=== PATIENT | female | born 1950 | race Caucasian/White ===

== ENCOUNTER 2016-11-06 20:51 | Observation (INO) ==
[2016-11-06] MEDS ORDERED: FAMOTIDINE 20 MG/2 ML VIAL IV STA (21:28)
[2016-11-06] MEDS ORDERED: diphenhydrAMINE 50 MG/1 ML VIAL IV STA (21:28)
[2016-11-06] MEDS ORDERED: methylPREDNISolone SOD SUC 125 MG/2 ML VIAL IV STA (21:28)
[2016-11-06] MEDS ORDERED: SODIUM CHLORIDE 0.9% 500 ML IV STA (21:28)
--- NOTE | 2016-11-06 21:51 | Emergency Department Note ---
IChaz Emily, am scribing for, and in the presence of, Dominic Alcaraz MD 21: 49. ILissa Charles R, MD, personally performed the services described in this documentation, ascribed by Renetta Ware in my presence, and it is both accurate and complete . Arrival - Arrival Chief Complaint: Allergic Reaction Stated Complaint: hives ED Nursing Triage Note: Patient to triage with c/o hives all over body that started around 193 that patient states is "stinging" unknown cause. denies trouble swallowing, SOB. lungs clear in all espinosa in triage. Patient states the only thing she can think of that it could be is a choudhury cough drop she took. Patient also just finished a round of ABX, sulfa. Mode of Arrival: Ambulatory Limitations: No Limitations Source: Patient Time Seen by Provider: 11/06/16 21:20 - History of Present Illness HPI Narrative: Pt is a 66 y/o female who came to ED with c/o diffuse rash over body that started this afternoon. Pt notes at dinner time her son pointed out the severity, then reports the rash spread profusely. Pt reports having burning and sensitivity to upper back beginning of the afternoon but ignored it. She states now the rash has become intense with burning, especially around eyes. Pt denies recent tick bites. She states taking a sulfa based abx recently finished for an ingrown toenail that was removed. As well as, eating choudhury cough drops today due to having the chills and was thinking she was getting a cold. Pt does have low grade fever in ED of 99.8. Onset (ago): hour(s) Consistency: constant Severity: moderate Severity scale (1-10): 5 Quality: other (spreading) Date of Last Menstrual Period: menopause Allergies/Adverse Reactions: Allergies Allergy/AdvReac Type Severity Reaction Status Date / Time No Known Allergies Allergy Unverified 11/06/16 21:07 Review of System - Review of System 12 point system: reviewed and no additional remarkable complaints except as stated - Review of System Constitutional: Absent: chills, fever Head/Ears/Nose/Throat: Present: sore throat. Absent: earache Respiratory: Absent: respiratory distress, wheezing Cardiovascular: Absent: chest pain Gastrointestinal: Absent: abdominal pain Skin: Present: rash (diffusely) Neurological: Absent: headache Allergic/Immunologic: Absent: itchy eyes (burning near eyes) Medical,Surgical,& Family Hx - Medical History Endocrine: History of: Thyroid Disorder - Surgical History HEENT Surgeries: Surgical HX of: Thyroid Surgery - Family History Family History: noncontributory - Social History Smoking Status: Never smoker Frequency of Alcohol Use: None Type of Drug Use: None Marital Status: Lives With:: Spouse Functional capacity: independent ambulation Exam Vital Signs: Vital Signs Temperature 99.8 F H 11/06/16 21:01 Pulse Rate 103 H 11/06/16 21:01 Respiratory Rate 20 11/06/16 21:01 Blood Pressure 153/66 11/06/16 21:01 O2 Sat by Pulse Oximetry 98 11/06/16 21:01 - General General appearance: alert, in no apparent distress - Head Head exam: Present: atraumatic, normocephalic - Eye Eye exam: Present: PERRL, EOMI - ENT ENT exam: Present: mucous membranes moist. Absent: normal oropharynx ( erythematous; not enlarged tonsils; strawberry tongue), mucous membranes dry - Neck Neck exam: Present: full ROM, trachea midline. Absent: tenderness, meningismus - Chest Chest inspection: Present: symmetric chest wall rise. Absent: tenderness - Respiratory Respiratory exam: Present: normal lung sounds bilaterally. Absent: accessory muscle use, respiratory distress, stridor, wheezes - Cardiovascular Cardiovascular exam: Present: tachycardia, normal heart sounds - Extremities Exam Extremities exam: Present: full ROM. Absent: pedal edema - Neurological Exam Neurological exam: Present: alert, oriented X3, CN II-XII intact. Absent: motor sensory deficit - Psychiatric Psychiatric exam: Present: normal affect, normal mood - Skin Skin exam: Present: warm (febrile), dry, rash (rash diffusely over body, on palms of bilateral hands but not plantar surfaces; upper back rash is rasied and severely sensitive to touch consistent with macular and papular rash; petechial rash on bilateral lower extremites) Course - Consultations Consultation #1: Hospitalists will admit patient Time: 23:42 Results - Labs CBC & BMP: 11/06/16 21:42 11/06/16 21:42 Lab Results: I have reviewed the patients labs Labs: Microbiology 11/06/16 22:15 Throat Group A Streptococcus Rapid Screen - Final Negative for Grp A Strep Ag 11/06/16 22:15 Nasal Aspirate Influenza Types A,B Antigen (PABLO) - Final Negative for Influenza A Ag Negative for Influenza B Ag Laboratory Tests 11/06/16 11/06/16 11/06/16 21:42 21:42 21:42 WBC 8.8 RBC 4.64 Hgb 13.7 Hct 40.6 Plt Count 205 Neut % (Auto) 82.4 H Lymph % (Auto) 13.1 L Lymph # (Auto) 1.2 L INR 1.0 PT Patient/Control Mix 10.7 Sodium 139 Potassium 3.7 Chloride 105 Carbon Dioxide 27 BUN 20 H Creatinine 1.10 H GFR Calculation 56 Glucose 132 H Calcium 8.4 L AST 22 C-Reactive Protein 5.30 H Critical Care Time Critical Care Time: Yes Total Critical Care Time: 60 Disposition Clinical Impression: Rash of body, Petechial rash, RMSF ([place] spotted fever), Fever, Malaise and fatigue Case discussed with: patient, patient's family Disposition: Still a Patient Condition: Guarded Time of Disposition: 23:42
[2016-11-06 22:19] LABS: Basophils % 0.1 % (0.0-0.8); Eosinophils # 0.1 10*3/uL (0.0-0.87); Eosinophils % 1.5 % (0.00-10.9); Hematocrit 40.6 VOL% (35.7-47.0); Hemoglobin 13.7 GM/DL (12.0-16.0); Immature Granulocytes % 0.3 %; Immature Granulocytes Absolute 0.03 #; Lymphocytes # 1.2 10*3/uL (1.4-4.0); Lymphocytes % 13.1 % (21.3-54.2); Mean Corpuscular HGB Conc 33.7 GM/DL (32-36); Mean Corpuscular Hemoglobin 30 PG (27-34); Mean Corpuscular Volume 87.5 FL (87-102); Mean Platelet Volume 10.3 FL (9.6-12.0); Monocytes # 0.2 10*3/uL (0.11-0.8); Monocytes % 2.6 % (1.7-12.7); Neutrophils # 7.2 10*3/uL (1.4-7.4); Neutrophils % 82.4 % (38.7-73.9); Platelet Count 205 T/CUMM (130-400); Red Blood Count 4.64 MC/CUMM (3.8-5.5); Red Cell Distribution Width 13.8 % (9.3-17.3); White Blood Count 8.8 T/CUMM (4-12)
[2016-11-06] MEDS ORDERED: diphenhydrAMINE 50 MG/1 ML VIAL ONE (22:21)
[2016-11-06] MEDS ORDERED: methylPREDNISolone SOD SUC 125 MG/2 ML VIAL ONE (22:21)
[2016-11-06] MEDS ORDERED: FAMOTIDINE 20 MG/2 ML VIAL IV ONE (22:22)
[2016-11-06 22:29] LABS: PT Patient Result 10.7 SECS
[2016-11-06 22:38] LABS: Albumin 3.5 G/DL (3.4-5.0); Bilirubin,Total 0.9 MG/DL (0.2-1.0); Calcium 8.4 MG/DL (8.5-10.1); Lactic Acid 1.5 MMOL/L (0.4-2.0); Osmolality,Calculated 281.5 MOS/KG (273-304); Potassium 3.7 MMOL/L (3.5-5.1); Total Protein 6.6 G/DL (6.4-8.3)
[2016-11-06] MEDS ORDERED: DOXYCYCLINE HYCLATE INJ 100 MG in SODIUM CHLORIDE 0.9% 100 ML IV STA (23:40)
[2016-11-06 23:58] LABS: Sedimentation Rate-Westergren 55 MM/HR (0-30)
[2016-11-07] MEDS ORDERED: DOXYCYCLINE HYCLATE 100 MG VIAL ONE (00:46)
[2016-11-07] MEDS ORDERED: SODIUM CHLORIDE 0.9% 100 ML IV ONE (00:46)
[2016-11-07 01:11] LABS: Apearance,Urine CLEAR (Clear); Bilirubin,Urine Negative (Negative); Blood, Urine Negative (Negative); Glucose,Urine (UA) Negative (Negative); Ketones,Urine Negative (Negative); Mucus,Urine Occasional /LPF (Occasional); Nitrite,Urine Negative (Negative); Protein,Urine Negative; Squamous Epithelial Cell,Urine Occasional /HPF (0-10); Urine Color Yellow (Yellow); Urine Specific Gravity 1.008 (1.001-1.035); Urine Urobilinogen < 2.0 EU/DL (0.2-1.0)
[2016-11-07] MEDS ORDERED: ONDANSETRON 4 MG/2 ML VIAL IV PRN (01:43)
[2016-11-07] MEDS ORDERED: ACETAMINOPHEN 325 MG TABLET PO PRN (01:43)
--- NOTE | 2016-11-07 02:23 | Hospitalist History & Physical ---
Assessment and Plan (1) Petechial rash Status: Acute Current Visit: Yes (2) Malaise and fatigue Status: Acute Current Visit: Yes (3) HTN (hypertension) Status: Acute Current Visit: Yes (4) Hypothyroidism associated with surgical procedure Status: Acute Assessment and plan: Plan: 1. Will place on Cardiac monitored bed. ID work up including ruling out for [place] Spotted Fever, symptoms consistent with this diagnosis however the patient denies any association with TICS, only Fleas. No leukocytosis, low fever. Consult ID. Will administer Doxcycline q 12, continue IV hydration, Benadryl as needed, Pepcid, resume home dose Zyrtec and Singular. Eosinophils are not elevated. Unsure if the patient has had an allergic reaction. Steroids 125mg were given in the ED which should cover her for the next 24 hours since she is such a small female. Consider adding smaller dose if no improvement tomorrow. 2. REpeat labs in the morning, continue gently hydration, prn pain medication and prn IV antihypertensives if the patient remains hypertensive. 3. Resume home dose synthroid, assess labs in am. Lipid panel in am. Resume statin once medication is verified. 4. We will utilize Pepcid IV bid instead of Protonix to provide better H2 isiah with possible reaction and Lovenox for DVT px. Fifty five minutes was spent on this H&P not including procedures. Current Visit: Yes History of Present Illness Chief complaint: New onset rash History of present illness: CC: Rash and Hives HPI: Ms. Em is a 66 year old female with past medical history significant for elevated cholesterol, surgically induced Hypothyroidism and seasonal allergies that presented to the the ED today with rapid onset of Rash and hives covering her whole body that started approximately at 19:30.She lives in [place] and is here visiting her Son. She states she has been feeling tired and ran down with seasonal allergies and scratchy throat since last Friday requiring naps daily. Associated symptoms included, malaise, scratchy throat chills, rash, hives, stinging around eyes, and a rash and hives over her entire body that is worse on her chest back and neck. Symptoms have been consistent despite IV steroids and IV Benadryl. She denies, dizziness, SOB, difficulty swallowing, chest pain, palpitations, nausea, vomiting, melena, tic bites, She states she has been on two rounds of antibiotics for an infected toenail, Keflex the first round and then Bactrim. She states the only thing she has taken that is unusual is a choudhury cough drop for a scratchy throat. She also states 4 weeks ago she had her home sprayed for fleas and had several flea bites on her lower extremities. Chest xray with no obvious infiltrates. Labs revealed no significant leukocytosis, no elevation in eospinophils, CRP elevated to 5.6, Creatinine 1.1 , Influenza negative as well as strep, Multiple labs pending for ID work up. She will be admitted to the Hospitalist service for medical management and IV antibiotic therapy with ID consulted. O Allergies Allergy/AdvReac Type Severity Reaction Status Date / Time No Known Allergies Allergy Unverified 11/06/16 21:07 Medical,Surgical,& Family Hx - Medical History Cardio: No history of: CAD Psychological: No history of: Anxiety Disorders, Psychiatric Problems Neurology: No history of: Cerebrovascular Accident, Neurological Problems HEENT: No history of: Ear Problem, Eye Problem, Dental Problems Endocrine: History of: Dyslipidemia, Thyroid Disorder Gastrointestinal: No history of: GERD, Liver Problems, Gastrointestinal Cancer Musculoskeletal: History of: Back/Neck Problems, Degenerative Disk Disease, Musculoskeletal Problems (Arthritis in right foot. Right ingrown toenail infection. ) Hematology: No history of: Anemia, Blood Disorders Other: No history of: Anaphylaxis - Surgical History Surgical History: noncontributory HEENT Surgeries: Surgical HX of: Thyroid Surgery Additional Surgical History: surgery on right in grown toenail recently in September. - Family History Family History: Reports;: Family Cancer, Family Heart Disease, Family Hypertension - Social History Smoking Status: Never smoker Have you smoked in the last 12 months: No Frequency of Alcohol Use: None Type of Drug Use: None Functional capacity: independent ambulation - Constitutional Constitutional: Present: malaise - EENT Nose, mouth and throat: Present: nasal congestion, sore throat. Absent: throat swelling, tongue swelling, vertigo - Cardiovascular Cardiovascular: Absent: chest pain at rest, chest pain with activity, dyspnea, edema, palpitations - Respiratory Respiratory: Absent: cough, dyspnea - Gastrointestinal Gastrointestinal: Absent: abdominal pain, constipation, dysphagia, nausea - Genitourinary Genitourinary: Absent: dysuria, hematuria - Musculoskeletal Musculoskeletal: Present: myalgias - Neurological Neurological: Absent: abnormal gait, convulsions, disequilibrium, dizziness, syncope Exam - Constitutional Vitals: Period Temp Pulse Resp BP Sys/Anthony Pulse Ox Last 24 Hr 99.8 F-99.8 F 103-103 20-20 153-153/66-66 98 General appearance: normal weight - Head Head exam: Present: normocephalic, atraumatic, other (Diffuse rash of entire body including face, head and neck.) - Eye Eye exam: Present: EOMI Pupils: Present: VERO - ENT ENT exam: Present: normal exam, normal oropharynx, other (normal except for rash ) - Neck Neck exam: Present: other (scar from thyroid surgery, rash present) - Respiratory Respiratory exam: Present: clear to auscultation bilaterally. Absent: accessory muscle use, decreased breath sounds, rales, wheezes - Cardiovascular Cardiovascular exam: Present: tachycardia, other (regular rhythm, tachycardia) - GI/Abdominal GI/Abdominal exam: Present: normal bowel sounds, other (rash present) - Extremities Exam Extremities exam: Present: normal capillary refill, full ROM, other (Left foot Big toe toe nail with recent surgery dried drainage present with bandaid covering toe.+rash ) - Back Exam Back exam: Present: other (rash present). Absent: CVA tenderness (L), CVA tenderness (R) - Neurological Exam Neurological exam: Present: oriented X3, CN II-XII intact, reflexes normal - Skin Skin exam: Present: dry, erythema, rash, other (hives) Results - Labs CBC & BMP: 11/06/16 21:42 11/06/16 21:42 - Diagnostic Findings Procedure: Chest x-ray: report reviewed by me
[2016-11-07] MEDS: diphenhydrAMINE CAP 25 MG CAPSULE PO PRN ×3 (03:37→21:15)
[2016-11-07] MEDS: SODIUM CHLORIDE 0.9% 1,000 ML IV SCH ×2 (03:37→11:16)
[2016-11-07 06:17] LABS: Basophils % 0.2 % (0.0-0.8); Hematocrit 39.9 VOL% (35.7-47.0); Hemoglobin 13.4 GM/DL (12.0-16.0); Immature Granulocytes % 0.4 %; Immature Granulocytes Absolute 0.04 #; Lymphocytes # 0.6 10*3/uL (1.4-4.0); Lymphocytes % 6.1 % (21.3-54.2); Mean Corpuscular HGB Conc 33.6 GM/DL (32-36); Mean Corpuscular Hemoglobin 30 PG (27-34); Mean Corpuscular Volume 87.7 FL (87-102); Mean Platelet Volume 10.7 FL (9.6-12.0); Monocytes # 0.1 10*3/uL (0.11-0.8); Monocytes % 0.8 % (1.7-12.7); Neutrophils # 8.3 10*3/uL (1.4-7.4); Neutrophils % 92.5 % (38.7-73.9); Platelet Count 216 T/CUMM (130-400); Red Blood Count 4.55 MC/CUMM (3.8-5.5); Red Cell Distribution Width 13.8 % (9.3-17.3)
[2016-11-07 06:42] LABS: Band Neutrophils 5 % (0-10); Lymphocytes 4 % (20-55); Segmented Neutrophils 90 % (50-85); Total Cells Counted 100
[2016-11-07 06:43] LABS: Hypochromasia 1+; Microcytosis 1+
--- NOTE | 2016-11-07 06:51 | XRay Report ---
XR chest 1V portable Indication: Shortness of breath, fever Comparison: None available Findings: The heart and mediastinum are normal in size and configuration. The pulmonary vascularity is normal in caliber. No lung infiltrates, effusions, pneumothorax or other abnormality is demonstrated. Impression: Normal chest x-ray PROCEDURE INTERPRETED AT [facility] DEPARTMENT OF RADIOLOGY Final Report Signed by: Dr. Demetrio Candelaria
[2016-11-07 07:14] LABS: Calcium 8.1 MG/DL (8.5-10.1); Magnesium 2.1 MG/DL (1.8-2.4); Osmolality,Calculated 280.5 MOS/KG (273-304); Risk Ratio 1.71; Thyroid Stimulating Hormone 0.252 uIU/ml (0.358-3.74); VLDL CHOLESTEROL 8.6 MG/DL
[2016-11-07] MEDS: LEVOTHYROXINE 75 MCG TABLET PO SCH (07:21)
[2016-11-07] MEDS: MONTELUKAST 10 MG TABLET PO SCH (08:47)
[2016-11-07] MEDS: ENOXAPARIN 40 MG/0.4 ML SYRINGE SUBCUT SCH (08:47)
[2016-11-07] MEDS: FAMOTIDINE 20 MG TABLET PO SCH ×2 (08:47→21:14)
[2016-11-07] MEDS ORDERED: CETIRIZINE 10 MG TABLET PO PRN (09:00)
[2016-11-07] MEDS ORDERED: DOXYCYCLINE HYCLATE INJ 100 MG in SODIUM CHLORIDE 0.9% 100 ML IV SCH (12:00)
[2016-11-07] MEDS ORDERED: ZALEPLON 5 MG CAPSULE PO PRN (14:46)
--- NOTE | 2016-11-07 16:46 | Infectious Disease Consult ---
Assessment and Plan (1) Fever Status: Acute Assessment and plan: No fever since admission but she probably had fever at home yesterday. See below. Current Visit: Yes (2) HTN (hypertension) Status: Acute Current Visit: Yes (3) Rash of body Status: Acute Assessment and plan: My first impression is that this rash is a drug reaction, specifically to Bactrim. Her malaise started last week soon after she started taking the Bactrim and got progressively worse culminating with a rash over the past 1-2 days. Differential diagnosis includes viral infections such as West Nile, and also rickettsial infections. She has not recently found a tick on her body but [place] Recommendations: 1. Agree with empiric doxycycline 2. Supportive care for the rash. Patient advised that she is probably allergic to sulfa and should avoid those in the future 3. Send off West Nile virus serologies Thank you very much for the consult. Will follow. Current Visit: Yes History of Present Illness Chief complaint: Rash History of present illness: Ms. Em is a 66 year old female who is relatively well until a week ago when she started having malaise with increased tiredness and mild soreness of her body. Over the past few days she got chills and thinks she had a fever yesterday. She was carrying out her usual activities and after dinner yesterday her grand child noticed that her skin was red. When she looked she had a rash all over her body. For that reason she came to the emergency room and was admitted. She has not had any fever since admission. Of note the patient says that almost a month ago she noticed a dark spot to the tip of her left toe. She ended up going to see her mortgage loan underwriter and was told she had an ingrown toenail. He surgically excised the 2 sides of her toenail and gave her 10 week supply of cephalexin. After she took this the toe was still a bit red and so he gave her a 7 day supply of Bactrim double strength 1 tablet daily starting on 29 October. Patient took the last dose of Bactrim on the evening of the . It was the following day that she noticed the rash. Today the patient is possibly slightly better but she is is very tired because she has not slept. Says she feels a bit hyper [she got steroids]. The rash is tingly but not pruritic. She is not previously known to have any allergies. Home Medications Medication Instructions Recorded Confirmed Type Aspirin [Ecotrin] 81 mg PO DAILY 11/07/16 11/07/16 History Cetirizine Tab [ZyrTEC Tab] 10 mg PO DAILY 11/07/16 11/07/16 History Levothyroxine Tab [Synthroid Tab] 75 mcg PO DAILY@0700 11/07/16 11/07/16 History Lovastatin [Mevacor] 40 mg PO DAILY 11/07/16 11/07/16 History Montelukast Tab [Singulair Tab] 10 mg PO DAILY 11/07/16 11/07/16 History Multivitamin [Multivitamins] 1 tablet PO DAILY 11/07/16 11/07/16 History Allergies Allergy/AdvReac Type Severity Reaction Status Date / Time No Known Allergies Allergy Unverified 11/06/16 21:07 12 point system: reviewed and no additional remarkable complaints except as stated (Per HPI) Medical,Surgical,& Family Hx - Medical History Cardio: No history of: CAD Psychological: No history of: Anxiety Disorders, Psychiatric Problems Neurology: No history of: Cerebrovascular Accident, Neurological Problems HEENT: No history of: Ear Problem, Eye Problem, Dental Problems Endocrine: History of: Dyslipidemia, Thyroid Disorder Gastrointestinal: No history of: GERD, Liver Problems, Gastrointestinal Cancer Musculoskeletal: History of: Back/Neck Problems, Degenerative Disk Disease, Musculoskeletal Problems (Arthritis in right foot. Right ingrown toenail infection. ) Hematology: No history of: Anemia, Blood Disorders Other: No history of: Anaphylaxis - Surgical History HEENT Surgeries: Surgical HX of: Thyroid Surgery - Family History Family History: Reports;: Family Cancer, Family Heart Disease, Family Hypertension - Social History Smoking Status: Never smoker Frequency of Alcohol Use: None Type of Drug Use: None Infectious Disease Exam H&P - Constitutional Vitals: Vital Signs Temp Pulse Resp BP Pulse Ox 98.1 F 105 H 19 125/52 92 L 11/07/16 15:48 11/07/16 15:48 11/07/16 15:48 11/07/16 15:48 11/07/16 15:48 Intake and Output 11/07/16 11/07/16 11/07/16 07:59 15:59 23:59 Intake Total 220 / 220 1600 / 1600 Output Total 300 / 300 850 / 850 Balance -80 / -80 750 / 750 Intake: IV 100 / 100 1000 / 1000 Vibramycin Inj 100 mg In 100 / 100 Ns 100 ml @ 100 mls/hr IV 1X ED STA Rx#:[id number] Ns 1,000 ml @ 125 mls/hr 1000 / 1000 IV .Q8H HUAN Rx#: [id number] Oral 120 / 120 600 / 600 Output: Urine 300 / 300 850 / 850 Stool 0 / 0 Other: Voiding Method Toilet Toilet Weight 80.876 kg Patient Weight 11/07/16 23:59 Weight 80.876 kg Exam: General: Patient looks a bit tired but she was completely nontoxic appearing HEENT: Mucous membranes pink and moist, anicteric acyanotic, VERO, no oral exudates Neck: Supple, no thyroid gland enlargement, no lymphadenopathy Respiratory system: Breath sounds vesicular, no crepitations or wheezes Cardiovascular: Normal S1 and S2, no murmurs appreciated Abdomen: Normal bowel sounds, soft nontender throughout, no organomegaly or mass Genitourinary: No suprapubic pain or bladder distention Extremities: no edema, left toe noted with some irritation on both sides of the toenail, mild discoloration of the toe but no osmel drainage or significant swelling Skin: Diffuse confluent erythematous slightly raised macular rash from head to toe, even scalp involved. Few erythematous spots on palms. Reports - Labs CBC & BMP: 11/07/16 05:23 11/07/16 05:23 Labs: Laboratory Results - last 24 hr 11/06/16 11/06/16 11/06/16 21:42 21:42 21:42 WBC 8.8 RBC 4.64 Hgb 13.7 Hct 40.6 MCV 87.5 MCH 30 MCHC 33.7 RDW 13.8 Plt Count 205 MPV 10.3 Neut % (Auto) 82.4 H Lymph % (Auto) 13.1 L Leon % (Auto) 2.6 Eos % (Auto) 1.5 Baso % (Auto) 0.1 Neut # (Auto) 7.2 Lymph # (Auto) 1.2 L Leon # (Auto) 0.2 Eos # (Auto) 0.1 Baso # (Auto) 0.0 Total Counted Immature Gran % 0.3 Nucleated RBC % 0.0 Immature Gran # 0.03 Segmented Neutrophils Band Neutrophils Lymphocytes Monocytes Nucleated RBCs # 0.00 Immature Plt Fraction 0.0 Hypochromasia Microcytosis Morphology Comment ESR Westergren 55 H INR 1.0 PT Patient/Control Mix 10.7 Sodium 139 Potassium 3.7 Chloride 105 Carbon Dioxide 27 Anion Gap 10.7 BUN 20 H Creatinine 1.10 H GFR Calculation 56 BUN/Creatinine Ratio 18.00 Glucose 132 H Calculated Osmolality 281.5 Lactic Acid 1.5 Calcium 8.4 L Magnesium Total Bilirubin 0.90 AST 22 ALT 29 Alkaline Phosphatase 78 Lactate Dehydrogenase 229 C-Reactive Protein 5.30 H Total Protein 6.6 Albumin 3.5 Globulin 3.1 Albumin/Globulin Ratio 1.1 Triglycerides Cholesterol LDL Cholesterol VLDL Cholesterol HDL Cholesterol Heart Disease Risk Ratio Amylase 56 Lipase 205.0 Free T4 TSH 3rd Generation Urine Color Urine Appearance Urine pH Ur Specific [place] Urine Protein Urine Glucose (UA) Urine Ketones Urine Blood Urine Nitrate Urine Bilirubin Urine Urobilinogen Urine Leukocytes Ur Squamous Epith Cells Urine Mucus Ur Culture Indicated? Treponema pallidum IgG 11/06/16 11/07/16 11/07/16 21:42 00:57 05:23 WBC 9.0 RBC 4.55 Hgb 13.4 Hct 39.9 MCV 87.7 MCH 30 MCHC 33.6 RDW 13.8 Plt Count 216 MPV 10.7 Neut % (Auto) 92.5 H Lymph % (Auto) 6.1 L Leon % (Auto) 0.8 L Eos % (Auto) 0.0 Baso % (Auto) 0.2 Neut # (Auto) 8.3 H Lymph # (Auto) 0.6 L Leon # (Auto) 0.1 L Eos # (Auto) 0.0 Baso # (Auto) 0.0 Total Counted 100 Immature Gran % 0.4 Nucleated RBC % 0.0 Immature Gran # 0.04 Segmented Neutrophils 90 H Band Neutrophils 5 Lymphocytes 4 L Monocytes 1 L Nucleated RBCs # 0.00 Immature Plt Fraction 0.0 Hypochromasia 1+ Microcytosis 1+ Morphology Comment ESR Westergren INR PT Patient/Control Mix Sodium Potassium Chloride Carbon Dioxide Anion Gap BUN Creatinine GFR Calculation BUN/Creatinine Ratio Glucose Calculated Osmolality Lactic Acid Calcium Magnesium Total Bilirubin AST ALT Alkaline Phosphatase Lactate Dehydrogenase C-Reactive Protein Total Protein Albumin Globulin Albumin/Globulin Ratio Triglycerides Cholesterol LDL Cholesterol VLDL Cholesterol HDL Cholesterol Heart Disease Risk Ratio Amylase Lipase Free T4 TSH 3rd Generation Urine Color Yellow Urine Appearance Clear Urine pH 6.0 Ur Specific [place] 1.008 Urine Protein Negative Urine Glucose (UA) Negative Urine Ketones Negative Urine Blood Negative Urine Nitrate Negative Urine Bilirubin Negative Urine Urobilinogen < 2.0 H Urine Leukocytes Negative Ur Squamous Epith Cells Occasional Urine Mucus Occasional Ur Culture Indicated? Not indicated Treponema pallidum IgG Nonreactive 11/07/16 11/07/16 05:23 05:23 WBC RBC Hgb Hct MCV MCH MCHC RDW Plt Count MPV Neut % (Auto) Lymph % (Auto) Leon % (Auto) Eos % (Auto) Baso % (Auto) Neut # (Auto) Lymph # (Auto) Leon # (Auto) Eos # (Auto) Baso # (Auto) Total Counted Immature Gran % Nucleated RBC % Immature Gran # Segmented Neutrophils Band Neutrophils Lymphocytes Monocytes Nucleated RBCs # Immature Plt Fraction Hypochromasia Microcytosis Morphology Comment ESR Westergren INR PT Patient/Control Mix Sodium 139 Potassium 4.0 Chloride 106 Carbon Dioxide 24 Anion Gap 13.0 BUN 13 Creatinine 0.80 GFR Calculation 83 BUN/Creatinine Ratio 16.00 Glucose 165 H Calculated Osmolality 280.5 Lactic Acid Calcium 8.1 L Magnesium 2.1 Total Bilirubin AST ALT Alkaline Phosphatase Lactate Dehydrogenase C-Reactive Protein Total Protein Albumin Globulin Albumin/Globulin Ratio Triglycerides 43 Cholesterol 159 LDL Cholesterol 67.0 VLDL Cholesterol 8.6 HDL Cholesterol 93 H Heart Disease Risk Ratio 1.71 Amylase Lipase Free T4 1.29 TSH 3rd Generation 0.252 L Urine Color Urine Appearance Urine pH Ur Specific [place] Urine Protein Urine Glucose (UA) Urine Ketones Urine Blood Urine Nitrate Urine Bilirubin Urine Urobilinogen Urine Leukocytes Ur Squamous Epith Cells Urine Mucus Ur Culture Indicated? Treponema pallidum IgG - Reports Microbiology: Microbiology 11/06/16 22:15 Quick Strep Confirmation Culture - Preliminary Throat No Group A Streptococcus isolated. Group A Streptococcus Rapid Screen - Final Negative for Grp A Strep Ag 11/06/16 00:57 Direct Antigen Panel - Final Urine,Clean Catch 11/06/16 22:15 Influenza Types A,B Antigen (PABLO) - Final Nasal Aspirate Negative for Influenza A Ag Negative for Influenza B Ag - Diagnostic Findings Procedure: Chest x-ray: report reviewed by me (Normal study)
--- NOTE | 2016-11-07 16:56 | Hospitalist Progress Note ---
Hospitalist: Subjective Interval history: Patient was admitted after diffuse maculopapular rash, I feel is likely from Bactrim. She is feeling a little better compared to yesterday. Exam - Constitutional Vitals: Period Temp Pulse Resp BP Sys/Anthony Pulse Ox Last 24 Hr 97.9 F-99.8 F 92-105 16-20 93-153/48-67 92-100 Results - Labs CBC & BMP: 11/07/16 05:23 11/07/16 05:23 Quality Measures - Stroke Symptom Onset Unknown: No
[2016-11-07] MEDS: DOXYCYCLINE HYCLATE 100 MG CAPSULE PO SCH (21:14)
[2016-11-08] MEDS: SODIUM CHLORIDE 0.9% 1,000 ML IV SCH ×3 (07:09→09:51)
[2016-11-08] MEDS: LEVOTHYROXINE 75 MCG TABLET PO SCH (07:10)
[2016-11-08] MEDS: ENOXAPARIN 40 MG/0.4 ML SYRINGE SUBCUT SCH (08:57)
[2016-11-08] MEDS: FAMOTIDINE 20 MG TABLET PO SCH (08:58)
[2016-11-08] MEDS: DOXYCYCLINE HYCLATE 100 MG CAPSULE PO SCH (08:58)
[2016-11-08] MEDS: MONTELUKAST 10 MG TABLET PO SCH (08:58)
[2016-11-08 11:09] VITALS: BP 108/59
--- NOTE | 2016-11-08 11:49 | Discharge Summary ---
Hospital Course - Hospital Course Hospital Course: 66 year old female who is relatively well until a week ago presented with a generalized maculopapular rash.Pt stated that she developed malaise with increased tiredness and mild soreness of her body. Over the past few days she got chills and tone she had a fever. She was carrying out her usual activities and after dinner and her grand child noticed that her skin was red. When she looked she had a rash all over her body. For that reason she came to the emergency room and was admitted. She has not had any fever since admission. Of note the patient says that almost a month ago she noticed a dark spot to the tip of her left toe. She ended up going to see her conduit worker and was told she had an ingrown toenail. He surgically excised the 2 sides of her toenail and gave her 10 week supply of cephalexin. After she took this the toe was still a bit red and so he gave her a 7 day supply of Bactrim double strength 1 tablet daily starting on 29 October. Patient took the last dose of Bactrim on the evening of the . It was the following day that she noticed the rash. She was admitted to the hospitalist service and started on doxycycline. Dr. Dawn from infectious disease saw her in consultation. It was felt that she had an allergic reaction to Bactrim, however infectious workup was done including West Nile & Rickettsial titers. Rash has improved some. She is felt that she is stable to be discharged home with outpatient follow-up with Dr. Cifuentes. - Time spent with patient Time with patient DS: Less than 30 minutes Diagnosis - Discharge Diagnosis (1) Petechial rash Status: Acute Specialty Discharge - Follow Up or Referrals Follow up with: Pepper Reed MD [Physician] - 11/21/16 11:00 am Discharge Plan - Discharge Data Condition at Discharge: Stable Discharge Diet: advance to your usual diet Activity: resume usual activities as tolerated Hygiene: no restrictions Weight Bearing at Discharge: full weight bearing Contact your physician if you experience:: fever over 101, Redness or swelling - Discharge Medications New Cetirizine Tab [ZyrTEC Tab] 10 mg PO DAILY PRN #10 tablet PRN Reason: Allergy Symptoms diphenhydrAMINE CAP [Benadryl Cap] 25 mg PO Q6H PRN #30 capsule PRN Reason: Itching Doxycycline Hyclate Cap [Vibramycin Cap] 100 mg PO BID #7 capsule Zaleplon [Sonata] 5 mg PO BEDTIME PRN #30 capsule PRN Reason: Sleep Famotidine Tab [Pepcid Tab] 20 mg PO BID #20 tablet Continue Levothyroxine Tab [Synthroid Tab] 75 mcg PO DAILY@0700 Montelukast Tab [Singulair Tab] 10 mg PO DAILY Multivitamin [Multivitamins] 1 tablet PO DAILY Lovastatin [Mevacor] 40 mg PO DAILY Cetirizine Tab [ZyrTEC Tab] 10 mg PO DAILY Aspirin [Ecotrin] 81 mg PO DAILY - Follow Up or Referral Follow Up: Pepper Reed MD [Physician] - 11/21/16 11:00 am - Forms/Instructions Instructions: Doxycycline (By mouth), Acute Rash (DC) Exam - Constitutional Vitals: Period Temp Pulse Resp BP Sys/Anthony Pulse Ox Last 24 Hr 97.3 F-98.4 F 78-105 18-20 98-125/52-62 92-96 Exam: General: [No Acute Distress] HEENT: [Normocephalic, atraumatic, Extra ocular movements intact] Neck: [Supple, No JVD] Chest: [Clear to auscultation B/L] CV: [S1 + S2 audible without murmur, gallop or rub] Abd: [soft, NT, Non-distended, BS +] Ext: [No edema] Skin: [Generalized maculopapular rash] Rheumatologic: [No Joint deformities] Neurologic: [Strength 5/5 all extremities, no gross sensory deficits] Discharge Results Procedures and tests throughout hospitalization: Pending Orders 11/06/16 00:57 Meningitis Ags w/Urine Culture Stat 11/06/16 21:42 HSV Types 1/2 Ab, IgG, S Stat Lyme Disease Serology, S Stat Rickettsial Disease Panel Stat Spotted Fever Group IgG/IgM Stat 11/06/16 22:16 Blood Culture Stat 11/07/16 18:48 West Nile Virus Ab,IgG/M, S Stat Labs on day of discharge: Preliminary micro results at discharge 11/06/16 00:57 Urine Culture - Preliminary Urine,Clean Catch No growth at 24 hours 11/06/16 22:16 Blood Culture - Preliminary Blood No growth at 1 day 11/06/16 22:00 Blood Culture - Preliminary Blood No growth at 1 day DS: Provider Date of admission: 11/07/16 01:43 Primary care physician: . No PCP Attending physician on admission: Zacarias Ross MD Consults: 11/07/16 01:57 Consult to Physician [CONS] Routine Comment: Consulting Provider: Pepper Reed Consult to Specialist Group: Infectious Disease When should Consulting Provider be notified: In am Person Notified: GERBER Date Notified: 11/07/16 Time Notified: 09:03 Consult Notification Comment: Discharging clinician: Malissa Cavazos MD
--- NOTE | 2016-11-08 12:49 | Infectious Disease Progress ---
Assessment and Plan (1) Fever Status: Acute Current Visit: Yes (2) HTN (hypertension) Status: Acute Current Visit: Yes (3) Rash of body Status: Acute Assessment and plan: Most likely drug reaction, specifically due to Bactrim. She significantly improved today having been off Bactrim since admission. Recommendations: 1. Can complete 7 days empiric therapy with doxycycline 2. I am okay with patient going home today and I can see in the office in about 2 weeks to follow-up results of the serologies that are in progress Current Visit: Yes Infectious Disease - PN: Subj Interval history: Patient feeling very well today, almost back to normal baseline strength. Her rash is significantly better compared to yesterday. Infectious Disease Exam (PN) - Constitutional Vitals: Temp Pulse Resp BP Pulse Ox 97.3 F L 84 18 108/59 93 L 11/08/16 11:07 11/08/16 11:07 11/08/16 11:07 11/08/16 11:07 11/08/16 11:07 General appearance: normal weight Exam: General appearance: no acute distress, looks great - Eye Eye exam: Present: EOMI. no icterus Pupils: Present: VERO - ENT ENT exam: no oropharyhgeal exudates - Extremities Exam Extremities exam: no edema - Skin Skin exam: Significant improvement in the general erythematous macular rash Results - Labs CBC & BMP: 11/07/16 05:23 11/07/16 05:23 Lab Results: I have reviewed the past 24 hour labs Quality Measures - Stroke Symptom Onset Unknown: No Specialty Discharge - Follow Up or Referrals Follow up with: Pepper Reed MD [Physician] - 11/21/16 11:00 am
[2016-11-12 17:26] LABS: Q Fever IgM Phase I Screen NEGATIVE (NEGATIVE); Q Fever IgM Phase II Screen NEGATIVE (NEGATIVE)
== END 2016-11-08 12:30 | disposition home or self-care (01) ==
LOC: N.EDINP 20:51 → N.ED 20:51 → SUATTDRO 11-07 01:43 → N.5E 11-07 02:18
PROVIDERS: ADMIT Internal Medicine; ATTEND Internal Medicine Infectious Disease